=== PATIENT | male | born 1995 | race Caucasian/White ===

== ENCOUNTER 2018-12-18 14:51 | Emergency (ER) | payer MEDICAID, OTHER | END 2018-12-18 17:38 | disposition home or self-care (01) | LOC: FTE 14:51 | DX: R21 Rash and other nonspecific skin eruption (principal) | CPT/HCPCS: 99283; Z7502 ==

== ENCOUNTER 2019-07-23 19:51 | Emergency (ER) | payer OTHER, MEDICAID | END 2019-07-23 20:46 | disposition home or self-care (01) | LOC: FTE 19:51 | DX: J02.9 Acute pharyngitis, unspecified (principal) | CPT/HCPCS: 99283; Z7502 ==